=== PATIENT | male | born 1940 | race Two or more races ===

== ENCOUNTER 2022-01-15 21:45 | Emergency (ER) | payer OTHER ==
[~2022-01-15] VITALS: Ht 160 cm; Wt 56.7 kg
--- NOTE | 2022-01-15 22:25 | NUR ---
PT BIBRA C/O FALLING FROM WHEEL CHAIR WHILE BEING PUSHED IN WHEELCHAIR. PT AAOX3 BREATHING EVENLY AND UNLABORED. PT DENIES PAIN. PT ATTACHED TO MONITOR AND POX. PT GIVEN BLANKET AND CALL LIGHT WITHIN REACH
--- NOTE | 2022-01-15 22:26 | NUR ---
[facility] - [facility] [phone]
--- NOTE | 2022-01-15 22:40 | NUR ---
TAKEN TO CT
--- NOTE | 2022-01-15 22:50 | NUR ---
Note teodoraone in EDM - 01/15/22 at 2300 by LAZARA PT BIBRA C/O FALLING FROM WHEEL CHAIR WHILE BEING PUSHED IN WHEELCHAIR. PT AAOX3 BREATHING EVENLY AND UNLABORED. PT DENIES PAIN. PT ATTACHED TO MONITOR AND POX. PT GIVEN BLANKET AND CALL LIGHT WITHIN REACH
--- NOTE | 2022-01-15 22:56 | NUR ---
RETURNED FROM CT
--- NOTE | 2022-01-16 01:11 | NUR ---
CALLED [facility] FOR SNAP SHOT AND LAST CT OF HEAD
--- NOTE | 2022-01-16 01:20 | NUR ---
Patient discharged to home in stable condition. Written and verbal after care instructions given. Patient verbalizes understanding of instruction. IV removed. Catheter intact and site benign. Pressure and 4x4 applied to site. No bleeding noted. PT wheeled out to daughter's car
[2022-01-16 01:37] VITALS: BP 120/72
== END 2022-01-16 01:20 | disposition home or self-care (01) ==
LOC: ER 21:56
DX: S09.90XA Unspecified injury of head, initial encounter (principal); E11.9 Type 2 diabetes mellitus without complications; Z86.59 Personal history of other mental and behavioral disorders; W18.09XA Striking against other object with subsequent fall, initial encounter; Y93.89 Activity, other specified; Y92.89 Other specified places as the place of occurrence of the external cause; Y99.8 Other external cause status
CPT/HCPCS: 70450-TC